=== PATIENT | male | born 1990 | race Caucasian/White ===

== ENCOUNTER 2017-11-24 14:23 | Inpatient (IN) | payer MEDICAID ==
[~2017-11-24] VITALS: Ht 182.9 cm; Wt 90.5 kg
[2017-11-24 14:25] VITALS: BP_SYST 135
--- NOTE | 2017-11-24 14:25 | NUR ---
BROUGHT BACK TO BED #7 AND TRIAGED. REPORT GIVEN TO MY
--- NOTE | 2017-11-24 14:30 | NUR ---
27year old male presented to ED accompanied by family with complaints of 9 DAYS WITH N/V, DENIES DIARRHEA. GENERALIZED ABD PAIN; reports chronic 5year history of cannabis smoking; awaiting for MD assess/eval
--- NOTE | 2017-11-24 14:35 | NUR ---
Dr. Hernandez at bedside for assess/eval
[2017-11-24] MEDS ORDERED: ONDANSETRON HCL 4 MG/2 ML VIAL IVP ONE (14:45)
[2017-11-24] MEDS ORDERED: MORPHINE 4 MG/ML INJ. SYRINGE IVP ONE (14:45)
--- NOTE | 2017-11-24 14:50 | NUR ---
20g R wrist PIV; good blood return noted; blood samples drawn and sent to lab; pt john
--- NOTE | 2017-11-24 15:00 | NUR ---
10/18 epigastric abd pain; Morphine and Zofran given as ordered; will reassess and continue to monitor
--- NOTE | 2017-11-24 15:05 | NUR ---
pt off unit to Radiology via wheelchair in stable condition
--- NOTE | 2017-11-24 15:13 | NUR ---
pt returned to unit from Radiology via wheelchair in stable condition
--- NOTE | 2017-11-24 15:13 | NUR ---
endorsed care to ALDO Engel; pending urine collection; pt states will attempt to provide specimen
[2017-11-24 15:20] LABS: BASOPHILS # (AUTO) 0.3 K/uL (0.0-0.2); BASOPHILS % (AUTO) 4.1 % (0.0-2.0); EOSINOPHILS # (AUTO) 0.1 K/uL (0.0-0.4); EOSINOPHILS % (AUTO) 1.2 % (0.0-4.0); HEMATOCRIT 44.4 % (36-54); HEMOGLOBIN 15.6 g/dL (14.0-18.0); LYMPHOCYTES # (AUTO) 2.8 K/uL (1.0-5.5); MEAN CORPUSCULAR HEMOGLOBIN 31 pg (27-31); MEAN CORPUSCULAR HGB CONC 35 % (32-36); MEAN CORPUSCULAR VOLUME 89 fL (79.0-98.0); MONOCYTES # (AUTO) 0.7 K/uL (0.0-1.0); MONOCYTES % (AUTO) 8.5 % (1.7-9.3); NEUTROPHILS # (AUTO) 3.9 K/uL (1.8-7.7); NEUTROPHILS % (AUTO) 50.2 % (40.0-70.0); PLATELET COUNT (AUTO) 295 K/uL (130-430); RED BLOOD CELL COUNT(AUTO) 4.97 MIL/uL (4.2-6.2); RED CELL DISTRIBUTION WIDTH 11.8 % (9.0-15.0); WHITE BLOOD COUNT (AUTO) 7.8 K/uL (4.8-10.8)
[2017-11-24 16:07] LABS: CALCIUM 9.4 mg/dL (8.4-11.0); CREATININE 0.99 mg/dL (0.55-1.30); POTASSIUM 3.1 mmol/L (3.5-5.1)
[2017-11-24 16:10] LABS: PROTHROMBIN TIME 10.6 SECS (9.5-12.5)
[2017-11-24 16:11] LABS: BILIRUBIN,URINE 1+ (NEGATIVE); CLARITY/URINE CLEAR (CLEAR); COLOR,URINE YELLOW (YELLOW); GLUCOSE,URINE NEGATIVE (NEGATIVE); KETONES,URINE TRACE (NEGATIVE); LEUKOCYTE ESTERASE ,URINE NEGATIVE (NEGATIVE); NITRITE, URINE NEGATIVE (NEGATIVE); PROTEIN URINE 1+ (NEGATIVE)
[2017-11-24 16:12] LABS: BLOOD, URINE TRACE (NEGATIVE)
[2017-11-24 16:13] LABS: ALBUMIN 4.4 g/dL (3.4-4.8); TOTAL BILIRUBIN 0.6 mg/dL (0.0-1.0)
--- NOTE | 2017-11-24 16:14 | NUR ---
Patient medicated with phernergan ivp. Patient tolerated well. Will continue to monitor.
[2017-11-24] MEDS ORDERED: PROMETHAZINE HCL 25 MG/ML AMP IVP ONE (16:15)
[2017-11-24 16:16] LABS: BACTERIA,URINE FEW /HPF (None Seen); MUCUS,URINE 2+ /LPF (None Seen); RBC,URINE 0-3 /HPF (0-3); WBC,URINE 0-3 /HPF (0-3)
[2017-11-24] MEDS ORDERED: LORA-259 PO (16:36)
[2017-11-24] MEDS ORDERED: ARIP5TAB19 PO (16:36)
[2017-11-24] MEDS ORDERED: VENL37.55 PO (16:36)
--- NOTE | 2017-11-24 16:36 | NUR ---
Medication reconciliation completed with information provided by patient. Any prior medication reconciliation on file was reviewed and corrected.
--- NOTE | 2017-11-24 16:44 | NUR ---
Patient will be admitted to care of Dr. Zev Pedro. Admitted to Med Surg unit for observation. Will go to room 117B. Belongings list completed. Summary report printed. Report will be given at bedside.
[2017-11-24] MEDS ORDERED: PROMETHAZINE HCL 25 MG/ML AMP IVP PRN (16:45)
--- NOTE | 2017-11-24 16:45 | NUR ---
Transfer to [facility]. IV present no sign or symptom of infiltration.
--- NOTE | 2017-11-24 16:55 | NUR ---
ADMISSION: The patient, MARINA NIELSON, 27 y/o, M admitted by JOSÉ MCHUGH MD, was given written information regarding hospital policies, unit procedures and contact persons. Valuables were checked and .
[2017-11-24] MEDS ORDERED: MORPHINE 4 MG/ML INJ. SYRINGE IVP PRN (17:00)
[2017-11-24] MEDS ORDERED: LORazepam 2 MG/ML VIAL IVP PRN (17:00)
[2017-11-24] MEDS ORDERED: ONDANSETRON HCL 4 MG/2 ML VIAL IVP PRN (17:00)
--- NOTE | 2017-11-24 17:12 | NUR ---
GI consult called: for Dr. Lyon ([employer]), regarding gastroparesis, ordered by Dr. Pedro, spoke with Grace.
[2017-11-24 17:19] VITALS: BP_SYST 117
--- NOTE | 2017-11-24 18:22 | NUR ---
INITIAL ASSESSMENT: PATIENT IN THE ROOM.IV INFILTRATED. INITIAL ASSESSMENT RENDERED.STILL C/O ABDOMINAL PAIN 09/18. VITAL SIGNS STABLE AND AFEBRILE. ORIENTED TO CALL LIGHT,TOILETING AND HOSPITAL ROUTINES.PATIENT VERBALIZED UNDERSTANDING OF HEALTH TEACHINGS.GI MD AT THE BEDSIDE.
[2017-11-24] MEDS: D5/0.45 NS 1,000 ML IV SCH (18:27)
[2017-11-24] MEDS ORDERED: PANTOPRAZOLE SODIUM 40 MG/VIAL (PROTONIX) IVP ONE (19:00)
--- NOTE | 2017-11-24 19:30 | NUR ---
END OF SHIFT: REPORT GIVEN TO NIGHT NURSE ASHANTI. PATIENT NEEDS IV ACCESS,NIGHT AN DK AWARE. STABLE. STILL C/O ABDOMINAL PAIN.CONTINUE TO MONITOR.
--- NOTE | 2017-11-24 19:37 | NUR ---
OPENING NOTE Patient resting on the bed. No acute distress. Respiration even and unlabored. AAO x 4. Skin warm and dry to touch. ALDO Maldonado just inserted IV to RFA, gauge 22 with one attempted. Procedure tolerated well. Connected to current IVF D5 1/2NS at 100ml/hr, infusing well. Discussed the safety issue, use call light when need help, and plan of care, verbally understanding. Father at bedside. Safety measure maintained. Bed locked in low position, side rails up. Call light within reached. Will continue to monitor.
[2017-11-24 20:00] VITALS: BP_SYST 124
[2017-11-24] MEDS: MORPHINE 2 MG/ML INJ. SYRINGE IVP PRN (20:19)
--- NOTE | 2017-11-24 20:19 | NUR ---
MORPHINE GIVEN Patient c/o abdomen pain 09/18, Morphine 2mg IVP given as ordered. No acute distress. Safety measure maintained. Call light within reached. Bed locked in low position, side rails up. Continue to monitor.
--- NOTE | 2017-11-24 20:36 | NUR ---
paged paged for Dr Mayela Ortiz, dialed . s/w Eufemia.
--- NOTE | 2017-11-24 21:54 | NUR ---
paged Second page for Dr Mayela Ortiz, dialed . s/w Giuseppe.
--- NOTE | 2017-11-24 22:04 | NUR ---
JOSÉ MONTAGUE CALLED BACK Received the call back from Dr. Pedro. Informed to Dr. Pedro patient's K=3.1 and patient not received any K. Dr. Pedro with order of K-rider 40mEq IVPB X1, order read back and okay to .
[2017-11-24] MEDS ORDERED: KCL 40 mEq in 100 mL (PREMIX) 100 ML IV ONE (22:20)
[2017-11-24] MEDS ORDERED: POTASSIUM CHLORIDE 40 MEQ in NS 250 ML IV ONE (23:00)
--- NOTE | 2017-11-24 23:25 | NUR ---
AMBULATING IN THE [address] IN STEADY GAIT.
[2017-11-25] MEDS: MORPHINE 2 MG/ML INJ. SYRINGE IVP PRN ×2 (00:19→05:43)
[2017-11-25 00:32] VITALS: BP_SYST 120
--- NOTE | 2017-11-25 02:00 | NUR ---
ROUND Patient resting on the bed with eyes closed. No acute distress. IV intact, IVF infusing well. Safety measure maintained. Bed locked in low position, side rails up. Call light within reached. Continue to monitor.
--- NOTE | 2017-11-25 04:12 | NUR ---
AMBULATING IN THE [address] IN STEADY GAIT.
[2017-11-25] MEDS: D5/0.45 NS 1,000 ML IV SCH (04:56)
--- NOTE | 2017-11-25 05:43 | NUR ---
MORPHINE GIVEN Patient c/o abdomen pain 07/19, Morphine 2mg IVP given as ordered. No acute distress. Safety measure maintained. Call light within reached. Bed locked in low position, side rails up. Continue to monitor.
--- NOTE | 2017-11-25 06:42 | NUR ---
CLOSING NOTE Patient resting on the bed. No acute distress. Respiration even and unlabored. No c/o pain at this time. PRN pain med given around clock. Skin warm and dry to touch. IV intact to RFA, no redness, no swelling, IVF infusing well. All needs met. Hourly rounding during shift. Safety measure maintained. Bed locked in low position, side rails up. Call light within reached. Will endorse to morning shift nurse.
[2017-11-25 07:02] LABS: BASOPHILS % (AUTO) 0.4 % (0.0-2.0); EOSINOPHILS # (AUTO) 0.2 K/uL (0.0-0.4); HEMOGLOBIN 14.2 g/dL (14.0-18.0); LYMPHOCYTES # (AUTO) 3.1 K/uL (1.0-5.5); LYMPHOCYTES % (AUTO) 39.4 % (20.5-51.5); MEAN CORPUSCULAR HEMOGLOBIN 31 pg (27-31); MEAN CORPUSCULAR HGB CONC 35 % (32-36); MEAN CORPUSCULAR VOLUME 90 fL (79.0-98.0); MONOCYTES # (AUTO) 0.6 K/uL (0.0-1.0); NEUTROPHILS # (AUTO) 3.9 K/uL (1.8-7.7); NEUTROPHILS % (AUTO) 50.2 % (40.0-70.0); PLATELET COUNT (AUTO) 231 K/uL (130-430); RED BLOOD CELL COUNT(AUTO) 4.58 MIL/uL (4.2-6.2); RED CELL DISTRIBUTION WIDTH 11.9 % (9.0-15.0); WHITE BLOOD COUNT (AUTO) 7.8 K/uL (4.8-10.8)
[2017-11-25 07:12] LABS: CREATININE 0.99 mg/dL (0.55-1.30); POTASSIUM 3.6 mmol/L (3.5-5.1)
[2017-11-25 08:00] VITALS: BP_SYST 124
--- NOTE | 2017-11-25 08:00 | NUR ---
Initial notes: Patient awake, alert and oriented. Stable. Ambulatory with steady gait. Safety measures in placed. Call light within reach. Report received from manufacturing supervisor 2nd shift RN.
--- NOTE | 2017-11-25 08:58 | NUR ---
rounds: patient walking back and forth. Requesting to smoke but he did not have cigarette. Leo requested and administered thru ivp.
[2017-11-25] MEDS ORDERED: PANTOPRAZOLE SODIUM 40 MG/VIAL (PROTONIX) IVP SCH (09:00)
--- NOTE | 2017-11-25 11:55 | NUR ---
rounds: patient on bed resting. father at bedside. no distress noted.
[2017-11-25 12:04] VITALS: BP_SYST 141
--- NOTE | 2017-11-25 12:21 | NUR ---
Ambulatory: Patient walking at the hallway. Denies N/V. No abdominal pain.
[2017-11-25] MEDS ORDERED: TRAM1TAB33 PO (12:48)
[2017-11-25] MEDS ORDERED: PRO40 PO (12:48)
[2017-11-25] MEDS ORDERED: ONDA4TAB5 PO (12:48)
[2017-11-25 12:58] VITALS: BP_SYST 141
--- NOTE | 2017-11-25 13:00 | NUR ---
[place] rounds: Seen by Dr. Pedro with D/C order.
--- NOTE | 2017-11-25 13:20 | NUR ---
D/C Patient Patient given medication reconciliation form and D/C instructions. Exit Care provided. Patient verbalized understanding. MD discussed with patient the results and treatment provided. Ambulatory with steady gait for discharge to home. Patient in stable condition, ID band removed. IV catheter removed, intact and dressing applied, no active bleeding. Rx of Zofran, Tramadol and Pantoprazole given. Patient educated on pain management. All belongings sent with patient.
== END 2017-11-25 13:12 | disposition home or self-care (01) | DRG 241 ==
LOC: SED 14:23 → EDBD 14:23 → SMU 16:34
PROVIDERS: ADMIT Preventive Medicine Preventive Medicine/Occupational Environmental Medicine; ATTEND Preventive Medicine Preventive Medicine/Occupational Environmental Medicine
DX: K29.70 Gastritis, unspecified, without bleeding (principal); K31.84 Gastroparesis; E87.6 Hypokalemia; F12.188 Cannabis abuse with other cannabis-induced disorder; F31.9 Bipolar disorder, unspecified; F41.9 Anxiety disorder, unspecified; G43.A0 Cyclical vomiting, in migraine, not intractable; K21.9 Gastro-esophageal reflux disease without esophagitis; Z87.891 Personal history of nicotine dependence; R73.9 Hyperglycemia, unspecified
CPT/HCPCS: 36415; 80048; 80053; 81000-TC; 82150-TC; 83605; 83690-TC; 85025; 85610-TC; 85730-TC; 96374; 96375; 99285; C9113; J2060; J2270; J2405; J2550; J3480; J7050

== ENCOUNTER 2018-05-01 05:57 | Emergency (ER) | payer MEDICAID ==
[~2018-05-01] VITALS: Ht 182.9 cm; Wt 97.5 kg
[2018-05-01 05:57] VITALS: BP_SYST 145
[~2018-05-01 05:57] MED LIST: ARIP5TAB19 PO; LORA-259 PO; ONDA4TAB5 PO; PRO40 PO; TRAM1TAB33 PO; VENL37.55 PO
[2018-05-01 06:28] LABS: BILIRUBIN,URINE 1+ (NEGATIVE); CLARITY/URINE CLEAR (CLEAR); COLOR,URINE YELLOW (YELLOW); GLUCOSE,URINE NEGATIVE (NEGATIVE); KETONES,URINE TRACE (NEGATIVE); LEUKOCYTE ESTERASE ,URINE NEGATIVE (NEGATIVE); NITRITE, URINE NEGATIVE (NEGATIVE); PROTEIN URINE 1+ (NEGATIVE)
[2018-05-01 06:29] LABS: BLOOD, URINE TRACE (NEGATIVE)
[2018-05-01] MEDS ORDERED: NACL 0.9% 1,000 ML IV ONE (06:30)
[2018-05-01] MEDS ORDERED: METOCLOPRAMIDE HCL 10 MG/2 ML VIAL IVP ONE (06:30)
[2018-05-01] MEDS ORDERED: HALOPERIDOL LACTATE 5 MG/ML VIAL IVP ONE (06:30)
[2018-05-01 06:34] LABS: BACTERIA,URINE FEW /HPF (None Seen)
[2018-05-01 06:35] LABS: YEAST,URINE None Seen /HPF (None Seen)
[2018-05-01 07:45] VITALS: BP_SYST 122
== END 2018-05-01 07:45 | disposition home or self-care (01) ==
LOC: SED 05:57
DX: F12.19 Cannabis abuse with unspecified cannabis-induced disorder (principal); R11.2 Nausea with vomiting, unspecified; F41.9 Anxiety disorder, unspecified; F32.9 Major depressive disorder, single episode, unspecified; Z79.899 Other long term (current) drug therapy
CPT/HCPCS: 81000; 96361; 96374; 96375; 99283; J1630; J2765; J7030

== ENCOUNTER 2018-05-02 08:37 | Emergency (ER) | payer MEDICAID ==
[~2018-05-02] VITALS: Ht 182.9 cm; Wt 97.5 kg
[2018-05-02 08:41] VITALS: BP_SYST 126
[2018-05-02] MEDS ORDERED: MORPHINE 4 MG/ML INJ. SYRINGE IVP ONE (09:00)
[2018-05-02 09:20] VITALS: BP_SYST 120
== END 2018-05-02 09:20 | disposition home or self-care (01) ==
LOC: SED 08:37
DX: K31.84 Gastroparesis (principal); F32.9 Major depressive disorder, single episode, unspecified; F41.9 Anxiety disorder, unspecified; Z79.899 Other long term (current) drug therapy
CPT/HCPCS: 96374; 99283; J2270

== ENCOUNTER 2018-05-06 07:30 | Emergency (ER) | payer MEDICAID ==
[~2018-05-06] VITALS: Ht 182.9 cm; Wt 90.7 kg
[2018-05-06 07:42] VITALS: BP_SYST 160
[2018-05-06] MEDS ORDERED: ONDANSETRON HCL 4 MG/2 ML VIAL IM ONE (08:15)
[2018-05-06] MEDS ORDERED: KETOROLAC TROMETHAMINE 60 MG/2 ML VIAL IM ONE (08:30)
[2018-05-06 08:38] VITALS: BP_SYST 152
== END 2018-05-06 08:38 | disposition home or self-care (01) ==
LOC: SED 07:30
DX: K52.9 Noninfective gastroenteritis and colitis, unspecified (principal); F41.9 Anxiety disorder, unspecified; F32.9 Major depressive disorder, single episode, unspecified; R03.0 Elevated blood-pressure reading, without diagnosis of hypertension; Z79.899 Other long term (current) drug therapy
CPT/HCPCS: 96372; 99283; J1885; J2405

== ENCOUNTER 2018-07-24 16:43 | Emergency (ER) | payer MEDICAID ==
[~2018-07-24] VITALS: Ht 182.9 cm; Wt 90.7 kg
[~2018-07-24 16:43] MED LIST changes: +TRAM-350 PO; -TRAM1TAB33 PO
[2018-07-24 16:56] VITALS: BP_SYST 145
[2018-07-24] MEDS ORDERED: HALOPERIDOL LACTATE 5 MG/ML VIAL IVP ONE (17:30)
[2018-07-24] MEDS ORDERED: KETOROLAC TROMETHAMINE 15 MG VIAL IVP ONE (17:30)
[2018-07-24 18:09] LABS: CALCIUM 10.4 mg/dL (8.4-11.0); CREATININE 1.05 mg/dL (0.55-1.30); POTASSIUM 3.6 mmol/L (3.5-5.1)
[2018-07-24 18:11] LABS: HEMATOCRIT 50.4 % (36-54); MEAN CORPUSCULAR HEMOGLOBIN 30 pg (27-31); MEAN CORPUSCULAR HGB CONC 34 % (32-36); MEAN CORPUSCULAR VOLUME 88 fL (79.0-98.0); PLATELET COUNT (AUTO) 301 K/uL (130-430); RED CELL DISTRIBUTION WIDTH 13.1 % (9.0-15.0); WHITE BLOOD COUNT (AUTO) 20.1 K/uL (4.8-10.8)
[2018-07-24 18:14] LABS: ALBUMIN 5.1 g/dL (3.4-4.8); TOTAL BILIRUBIN 0.9 mg/dL (0.0-1.0)
[2018-07-24 18:36] LABS: BAND % (MANUAL) 7 % (0-6); BASOPHILS % (MANUAL) 0 % (0-2); EOSINOPHILS % (MANUAL) 0 % (0-7); LYMPHOCYTES % (MANUAL) 7 % (20-46); MONOCYTES % (MANUAL) 8 % (0-11)
[2018-07-24 18:55] VITALS: BP_SYST 108
== END 2018-07-24 18:55 | disposition home or self-care (01) ==
LOC: SED 16:43
DX: F12.188 Cannabis abuse with other cannabis-induced disorder (principal); F32.9 Major depressive disorder, single episode, unspecified; F41.9 Anxiety disorder, unspecified; R03.0 Elevated blood-pressure reading, without diagnosis of hypertension; F17.200 Nicotine dependence, unspecified, uncomplicated; Z71.6 Tobacco abuse counseling; Z79.899 Other long term (current) drug therapy
CPT/HCPCS: 36415; 80053; 83690; 85007; 85027; 93005; 96374; 96375; 99284; J1630; J1885

== ENCOUNTER 2018-07-26 15:26 | Emergency (ER) | payer MEDICAID ==
[~2018-07-26] VITALS: Ht 182.9 cm; Wt 93.0 kg
[2018-07-26 16:10] VITALS: BP_SYST 106
[2018-07-26] MEDS ORDERED: NACL 0.9% 1,000 ML IV ONE (17:30)
[2018-07-26] MEDS ORDERED: HALOPERIDOL LACTATE 5 MG/ML VIAL IVP ONE (17:30)
[2018-07-26 17:48] VITALS: BP_SYST 110
== END 2018-07-26 17:46 | disposition home or self-care (01) ==
LOC: SED 15:26
DX: R10.30 Lower abdominal pain, unspecified (principal); F41.9 Anxiety disorder, unspecified; F32.9 Major depressive disorder, single episode, unspecified; Z79.899 Other long term (current) drug therapy
CPT/HCPCS: 99283

== ENCOUNTER 2018-07-27 13:25 | Emergency (ER) | payer MEDICAID ==
[~2018-07-27] VITALS: Ht 182.9 cm; Wt 93.0 kg
[2018-07-27 13:30] VITALS: BP_SYST 141
[2018-07-27 14:19] VITALS: BP_SYST 141
== END 2018-07-27 14:19 | disposition home or self-care (01) ==
LOC: SED 13:25
DX: F12.188 Cannabis abuse with other cannabis-induced disorder (principal); R11.10 Vomiting, unspecified; F32.9 Major depressive disorder, single episode, unspecified; F41.9 Anxiety disorder, unspecified; R03.0 Elevated blood-pressure reading, without diagnosis of hypertension; Z79.899 Other long term (current) drug therapy
CPT/HCPCS: 99283

== ENCOUNTER 2020-01-13 15:25 | Emergency (ER) | payer MEDICAID ==
[~2020-01-13] VITALS: Ht 182.9 cm; Wt 90.7 kg
[~2020-01-13 15:25] MED LIST changes: -ARIP5TAB19 PO; +ARIP5TAB55 PO
[2020-01-13 15:40] VITALS: BP_SYST 138
[2020-01-13 16:24] LABS: BASOPHILS # (AUTO) 0.1 K/uL (0.0-0.2); BASOPHILS % (AUTO) 0.8 % (0.0-2.0); EOSINOPHILS # (AUTO) 0.1 K/uL (0.0-0.4); EOSINOPHILS % (AUTO) 0.5 % (0.0-4.0); HEMATOCRIT 44.6 % (36-54); HEMOGLOBIN 15.5 g/dL (14.0-18.0); LYMPHOCYTES # (AUTO) 3.5 K/uL (1.0-5.5); LYMPHOCYTES % (AUTO) 35.3 % (20.5-51.5); MEAN CORPUSCULAR HEMOGLOBIN 30 pg (27-31); MEAN CORPUSCULAR HGB CONC 35 % (32-36); MEAN CORPUSCULAR VOLUME 87 fL (79.0-98.0); MONOCYTES # (AUTO) 0.7 K/uL (0.0-1.0); MONOCYTES % (AUTO) 6.9 % (1.7-9.3); NEUTROPHILS # (AUTO) 5.6 K/uL (1.8-7.7); NEUTROPHILS % (AUTO) 56.5 % (40.0-70.0); PLATELET COUNT (AUTO) 299 K/uL (130-430); RED BLOOD CELL COUNT(AUTO) 5.11 MIL/uL (4.2-6.2); RED CELL DISTRIBUTION WIDTH 12.8 % (9.0-15.0); WHITE BLOOD COUNT (AUTO) 9.8 K/uL (4.8-10.8)
[2020-01-13 16:44] LABS: CALCIUM 9.4 mg/dL (8.4-11.0); CREATININE 1.08 mg/dL (0.55-1.30); POTASSIUM 3.6 mmol/L (3.5-5.1)
[2020-01-13 16:46] LABS: ALBUMIN 4.6 g/dL (3.4-4.8); BILIRUBIN,DIRECT 0.4 mg/dL (0.0-0.3); TOTAL BILIRUBIN 1.2 mg/dL (0.0-1.0)
[2020-01-13] MEDS ORDERED: HALOPERIDOL LACTATE 5 MG/ML VIAL IVP ONE (17:00)
[2020-01-13] MEDS ORDERED: DIPHENHYDRAMINE INJ 50 MG/ML VIAL IVP ONE (17:00)
[2020-01-13] MEDS ORDERED: NACL 0.9% 1,000 ML IV ONE (17:00)
[2020-01-13 19:00] VITALS: BP_SYST 138
== END 2020-01-13 19:00 | disposition home or self-care (01) ==
LOC: SED 15:25
DX: R11.10 Vomiting, unspecified (principal); R10.84 Generalized abdominal pain; F31.9 Bipolar disorder, unspecified; F41.9 Anxiety disorder, unspecified; F12.90 Cannabis use, unspecified, uncomplicated
CPT/HCPCS: 36415; 80048; 80076; 83690; 85025; 96361; 96374; 96375; 99284; J1200; J1630; J7030

== ENCOUNTER 2020-02-15 06:55 | Emergency (ER) | payer MEDICAID ==
[~2020-02-15] VITALS: Ht 182.9 cm; Wt 90.7 kg
[2020-02-15 06:55] VITALS: BP_SYST 128
[2020-02-15] MEDS ORDERED: HALOPERIDOL LACTATE 5 MG/ML VIAL IVP ONE (08:00)
[2020-02-15] MEDS ORDERED: DIPHENHYDRAMINE INJ 50 MG/ML VIAL IVP ONE (08:00)
[2020-02-15] MEDS ORDERED: NACL 0.9% 1,000 ML IV ONE (08:00)
[2020-02-15 08:29] LABS: BASOPHILS % (AUTO) 0.2 % (0.0-2.0); CALCIUM 9.2 mg/dL (8.4-11.0); CREATININE 0.91 mg/dL (0.55-1.30); HEMATOCRIT 40.3 % (36-54); HEMOGLOBIN 14.1 g/dL (14.0-18.0); LYMPHOCYTES # (AUTO) 1.2 K/uL (1.0-5.5); LYMPHOCYTES % (AUTO) 6.6 % (20.5-51.5); MEAN CORPUSCULAR HEMOGLOBIN 31 pg (27-31); MEAN CORPUSCULAR HGB CONC 35 % (32-36); MEAN CORPUSCULAR VOLUME 88 fL (79.0-98.0); MONOCYTES # (AUTO) 0.3 K/uL (0.0-1.0); MONOCYTES % (AUTO) 1.5 % (1.7-9.3); NEUTROPHILS # (AUTO) 17.2 K/uL (1.8-7.7); NEUTROPHILS % (AUTO) 91.7 % (40.0-70.0); PLATELET COUNT (AUTO) 250 K/uL (130-430); POTASSIUM 3.4 mmol/L (3.5-5.1); WHITE BLOOD COUNT (AUTO) 18.8 K/uL (4.8-10.8)
[2020-02-15 08:38] LABS: ALBUMIN 3.6 g/dL (3.4-4.8); TOTAL BILIRUBIN 1.3 mg/dL (0.0-1.0)
[2020-02-15 09:15] VITALS: BP_SYST 133
== END 2020-02-15 09:15 | disposition home or self-care (01) ==
LOC: SED 06:55
DX: R11.11 Vomiting without nausea (principal); F41.9 Anxiety disorder, unspecified; F12.90 Cannabis use, unspecified, uncomplicated; Z79.899 Other long term (current) drug therapy
CPT/HCPCS: 36415; 80053; 83690; 85025; 96361; 96374; 96375; 99284; J1200; J1630; J7030

== ENCOUNTER 2020-02-17 12:49 | Emergency (ER) | payer MEDICAID ==
[~2020-02-17] VITALS: Ht 182.9 cm; Wt 93.0 kg
[2020-02-17 12:54] VITALS: BP_SYST 135
--- NOTE | 2020-02-17 13:04 | NUR ---
Patient to ER bed 7 to gown for evaluation. Side rails up.
--- NOTE | 2020-02-17 13:10 | NUR ---
pr arrives from home w/ c/o 12/19 mid abd pain, sharp. N/V. Pt was seen here two days ago for similar symptoms. Pt reports he stopped smoking marijuana 6 days ago
[2020-02-17] MEDS ORDERED: ONDANSETRON HCL 4 MG/2 ML VIAL IVP ONE (13:15)
[2020-02-17] MEDS ORDERED: NACL 0.9% 1,000 ML IV ONE (13:15)
--- NOTE | 2020-02-17 13:30 | NUR ---
ER at bedside examining patient.
[2020-02-17] MEDS ORDERED: KETOROLAC TROMETHAMINE 30 MG VIAL IVP ONE (13:45)
[2020-02-17] MEDS ORDERED: DIPHENHYDRAMINE INJ 50 MG/ML VIAL IVP ONE (13:45)
[2020-02-17] MEDS ORDERED: HALOPERIDOL LACTATE 5 MG/ML VIAL IVP ONE (13:45)
--- NOTE | 2020-02-17 13:45 | NUR ---
# 22 gauge angiocath placed to left hand. Use of asceptic technique. Opsite placed over site. Blood return noted. Blood for lab drawn from site. Flushed with 10 cc of normal saline. No evidence of infiltration noted. Patient tolerated well.
--- NOTE | 2020-02-17 13:50 | NUR ---
NS 1l, Benadryl, Haldol, and Toradol given per MD order
[2020-02-17 16:11] VITALS: BP_SYST 124
--- NOTE | 2020-02-17 16:12 | NUR ---
Patient given written and verbal discharge instructions and verbalizes understanding. ER MD discussed with patient the results and treatment provided. Patient in stable condition. ID arm band removed. IV catheter removed intact and dressing applied, no active bleeding. Rx of PHENERGAN given. Patient educated on pain management and to follow up with PMD. Pain Scale 0/10. Opportunity for questions provided and answered. Medication side effect fact sheet provided.
== END 2020-02-17 16:11 | disposition home or self-care (01) ==
LOC: SED 12:49
DX: R10.13 Epigastric pain (principal); R11.2 Nausea with vomiting, unspecified; F41.9 Anxiety disorder, unspecified; F12.90 Cannabis use, unspecified, uncomplicated; Z79.899 Other long term (current) drug therapy
CPT/HCPCS: 96361; 96374; 96375; 99284; J1200; J1630; J1885; J7030

== ENCOUNTER 2020-02-20 06:59 | Emergency (ER) | payer MEDICAID ==
[~2020-02-20] VITALS: Ht 182.9 cm; Wt 90.7 kg
[2020-02-20 07:00] VITALS: BP_SYST 117
--- NOTE | 2020-02-20 07:00 | NUR ---
BROUGHT BACK TO BED #6 AND TRIAGED, REPORT GIVEN TO DARIN
--- NOTE | 2020-02-20 07:28 | NUR ---
Notes: Received patient lying in bed, a/a/ox4, cc of upper abdominal pain aching, hyperemesis x5 this morning and felt dehydrated. last time eaten few days ago. stated hyperemesis from smoking marijuana last use 2 weeks ago. no episode of nausea or vomiting at this time. keep hob elevated. informed about the purpose. will monitor.
--- NOTE | 2020-02-20 07:40 | NUR ---
ER at bedside examining patient.
[2020-02-20] MEDS ORDERED: DIPHENHYDRAMINE INJ 50 MG/ML VIAL IVP ONE (07:45)
[2020-02-20] MEDS ORDERED: HALOPERIDOL LACTATE 5 MG/ML VIAL IVP ONE (07:45)
[2020-02-20 08:08] LABS: BASOPHILS % (AUTO) 0.3 % (0.0-2.0); EOSINOPHILS # (AUTO) 0.2 K/uL (0.0-0.4); EOSINOPHILS % (AUTO) 1.8 % (0.0-4.0); HEMATOCRIT 38.1 % (36-54); HEMOGLOBIN 13.4 g/dL (14.0-18.0); LYMPHOCYTES # (AUTO) 0.9 K/uL (1.0-5.5); LYMPHOCYTES % (AUTO) 9.2 % (20.5-51.5); MEAN CORPUSCULAR HEMOGLOBIN 31 pg (27-31); MEAN CORPUSCULAR HGB CONC 35 % (32-36); MEAN CORPUSCULAR VOLUME 87 fL (79.0-98.0); MONOCYTES # (AUTO) 0.2 K/uL (0.0-1.0); MONOCYTES % (AUTO) 1.5 % (1.7-9.3); NEUTROPHILS % (AUTO) 87.2 % (40.0-70.0); PLATELET COUNT (AUTO) 370 K/uL (130-430); RED BLOOD CELL COUNT(AUTO) 4.38 MIL/uL (4.2-6.2); RED CELL DISTRIBUTION WIDTH 12.7 % (9.0-15.0); WHITE BLOOD COUNT (AUTO) 10.3 K/uL (4.8-10.8)
[2020-02-20 08:22] LABS: CALCIUM 9.1 mg/dL (8.4-11.0); CREATININE 0.79 mg/dL (0.55-1.30)
[2020-02-20 08:27] LABS: TOTAL BILIRUBIN 0.8 mg/dL (0.0-1.0)
[2020-02-20 08:30] LABS: POTASSIUM 2.9 mmol/L (3.5-5.1)
[2020-02-20] MEDS ORDERED: NACL 0.9% 1,000 ML IV ONE (08:30)
[2020-02-20] MEDS ORDERED: POTASSIUM CHLORIDE 20 MEQ/PKT PACKET PO ONE (08:30)
--- NOTE | 2020-02-20 08:35 | NUR ---
0825 pre haldol EKG PA 0.16, QRS 0.08, QT 0.32sec 0830 post haldol EKG PA 0.20, QRS 0.08, QT 0.36 sec.
[2020-02-20 09:31] VITALS: BP_SYST 113
--- NOTE | 2020-02-20 09:33 | NUR ---
Patient given written and verbal discharge instructions and verbalizes understanding. ER MD discussed with patient the results and treatment provided. Patient in stable condition. ID arm band removed. IV catheter removed intact and dressing applied, no active bleeding. Rx of k-dur given. Patient educated on pain management and to follow up with PMD. Pain Scale 0. Opportunity for questions provided and answered. Medication side effect fact sheet provided.
== END 2020-02-20 09:33 | disposition home or self-care (01) ==
LOC: SED 06:59
DX: R10.9 Unspecified abdominal pain (principal); R11.2 Nausea with vomiting, unspecified; F41.9 Anxiety disorder, unspecified; F12.90 Cannabis use, unspecified, uncomplicated; Z79.899 Other long term (current) drug therapy
CPT/HCPCS: 36415; 80053; 83690; 85025; 96361; 96374; 96375; 99284; J1200; J1630; J7030

== ENCOUNTER 2020-04-15 10:23 | Emergency (ER) | payer MEDICAID ==
--- NOTE | 2020-04-15 10:30 | NUR ---
pt to Tent 1 in chair. Alert and Oriented. C/O abdominal pain since 2019. Had BM yesterday. Abdomen soft to touch. No distress noted.
[2020-04-15 10:31] VITALS: BP_SYST 124
--- NOTE | 2020-04-15 10:48 | NUR ---
Pt in chair. A/O and able to communicate needs well.
--- NOTE | 2020-04-15 11:34 | NUR ---
MARGARITA Forrest at bedside examining patient. Addendum: 04/15/20 at 1208 by IOANA Pt not in Tent when Provider went to evaluate.
[2020-04-15 12:05] VITALS: BP_SYST 124
--- NOTE | 2020-04-15 12:08 | NUR ---
Patient left without being seen. Pt was stable.
== END 2020-04-15 12:05 | disposition home or self-care (01) ==
LOC: SED 10:23
DX: R10.9 Unspecified abdominal pain (principal); Z53.21 Procedure and treatment not carried out due to patient leaving prior to being seen by health care provider